=== PATIENT | female | born 1945 | race Caucasian/White ===

== ENCOUNTER 2018-01-25 13:00 | Inpatient (IN) | payer BC, MEDICARE ==
[2018-02-02] MEDS ORDERED: VANCOMYCIN HCL 1,000 MG in DEXTROSE 5 % IN WATER 250 ML IVPB ONE ×2 (06:00)
[2018-02-02] MEDS ORDERED: MECLIZINE 25 MG TABLET PO ONE (06:00)
[2018-02-02] MEDS ORDERED: FAMOTIDINE 20MG TABLET PO ONE (06:00)
[2018-02-02] MEDS ORDERED: METOCLOPRAMIDE 10 MG TABLET PO ONE (06:00)
[2018-02-02 08:40] LABS: ABO GROUP O; ANTIBODY SCREEN NEGATIVE (NEGATIVE); RH TYPE POSITIVE
[2018-02-02] MEDS ORDERED: ACETAMINOPHEN W/ CODEINE 300MG/60MG TABLET PO PRN ×2 (11:28)
[2018-02-02] MEDS ORDERED: DIPHENHYDRAMINE HCL 25 MG CAPSULE PO PRN (11:28)
[2018-02-02] MEDS ORDERED: BISACODYL 10 MG SUPP RC PRN (11:28)
[2018-02-02] MEDS ORDERED: ONDANSETRON HCL IV 4 MG/2 ML VIAL IVP PRN (11:28)
[2018-02-02] MEDS ORDERED: ACETAMINOPHEN 325 MG TAB PO PRN (11:28)
[2018-02-02] MEDS ORDERED: ZOLPIDEM TARTRATE 5 MG TABLET PO PRN (11:28)
[2018-02-02] MEDS ORDERED: HYDROCODONE/APAP 10/325 TABLET PO PRN ×2 (11:28)
[2018-02-02] MEDS ORDERED: AL HYDROX/MAG HYDROX 30ML UD PO PRN (11:28)
[2018-02-02] MEDS ORDERED: HYDROMORPHONE HCL 2 MG/ML VIAL IM PRN (11:28)
[2018-02-02] MEDS ORDERED: NALOXONE 0.4 MG/1 ML VIAL IVP PRN (11:28)
[2018-02-02] MEDS ORDERED: KETOROLAC 30 MG/ML VIAL IVP PRN ×2 (11:28)
[2018-02-02] MEDS ORDERED: MAGNESIUM HYDROXIDE 30 ML UDC PO PRN (11:28)
[2018-02-02] MEDS ORDERED: BUPIVACAINE 0.5% W/EPI MPF 30 ML VIAL IVP ONE (14:09)
[2018-02-02] MEDS ORDERED: TRANEXAMIC ACID 1,000 MG/10 ML ML IV ONE (14:09)
[2018-02-02] MEDS: POTASSIUM CHLORIDE/D5-0.9%NACL 20 MEQ/1,000 ML BAG IV SCH (15:36)
--- NOTE | 2018-02-02 16:25 | Rehab Evaluation ---
Patient Information - Patient Information Diagnosis: R hip OA Ordered Treatment: PT Evaluate and Treat Status: Initial Evaluation Surgery: Yes (R THR) Date of Surgery: 02/02/18 Past Medical/Surgical Hx: PAST MEDICAL/SURGICAL HISTORY Past Surgical History vag hyst 1970 corrective sx 1971 laparoscopy 1989 bilat cats c scopes PMH - Respiratory Hx Respiratory Disorders Yes Hx Pneumonia Yes PMH - Cardiovascular Hx Cardiovascular Disorders Yes Hx Hypertension Yes: on meds good control Hx Heart Murmur Yes Hx of Mitral Valve Prolapse Yes: mild no regurg Exercise Tolerance Good PMH - Neuro Hx Neurological Disorders No PMH - GI Hx Gastrointestinal Disorders Yes PMH - Hx Genitourinary Disorders Yes Hx Kidney Stones Yes: hx of PMH - Endocrine Hx Endocrine Disorders Yes Hx Thyroid Disease Yes: on meds hypo PMH - Musculoskeletal Hx Musculoskeletal Disorders Yes Hx Back Injury Yes: falls in the past PMH - Psych Hx Psychiatric Problems No PMH - Hematology/Oncology Hx Hematology/Oncology No Disorders Premorbid Status: Detail (The patient was independent with all mobility prior to surgery) Social History: Detail (The patient lives with spouse in a 2 story house with 5 -6 steps to get to the top floor and 2 steps at the enterance.) Precautions: [place], Fall, Other (WBAT on the R LE) - Time With Patient Total Time Spent With Patient (Min): 30 Treatment Procedures: Detail (Initial Evaluation, gait training) Subjective Information - Subjective Information Per Patient (The patient had no complaints of pain initial and mild pain when ambulating. The patient became nauseated and vomited x 1 after ambulating.) Objective Data - Mental Status Patient Orientation: Oriented x3 - Visual Perception Appears within normal limits for therapeutic activities - ROM Not within normal limits (The patient's R hip AROM is within Total hip precautions. All other LE AROM is WNL.) - Strength/Tone Not within normal limits (The patient's R LE strength was not tested s/p surgery , however patient's LE strength was functional ie: patient was able to lift LE in and out of bed.) - Bed Mobility Independent (The patient was independent with supine to and from sit and scooting up in bed following THR precautions.) - Transfers Independent (The patient was independent with sit to and from stand transfer and toilet transfer.) - Balance Balance Sitting: Good Balance Standing: Good - Sensation Intact - Gait Detail (The patient ambulated with a front wheeled walker WBAT on the R LE with CG of one for safety a distance of 40 feet x 1 .) Therapy Assessment - Therapy Assessment Detail (The patient was independent with bed mobility and transfers and ambulated with CG for safety only. The patient became flush with sit to stand and nauseated after ambulating. Feel the patient will progress well tomorrow with mobility.) Patient Education - Patient Education Teaching Topic: Precautions (The patient was able to identify 2 out of 3 total hip precautions without verbal cueing.) Response: Verbalize Understanding Teaching Method: Discussion, Handout Teaching Recipient: Patient Barriers To Learning: None Problem List - Problem List Physical Therapy Problem List: Detail (1) Decreased R LE strength as to be expected following surgery. 2) Non ambulatory on stairs) Goals - Goals Physical Therapy Goals: 1) The patient will ambulate on flights of stairs with supervision for safety only. 2) The patient will be independent with THR HEP. Prognosis - Prognosis Good Plan - Plan Physical Therapy Plan: PT for 1-2 PT sessions for gait training on stairs and instruction in HEP.
[2018-02-02] MEDS: VANCOMYCIN HCL 1,000 MG in DEXTROSE 5 % IN WATER 250 ML IVPB SCH ×2 (21:02)
[2018-02-02] MEDS: DOCUSATE SODIUM 100 MG CAPSULE PO SCH (22:04)
[2018-02-03] MEDS: POTASSIUM CHLORIDE/D5-0.9%NACL 20 MEQ/1,000 ML BAG IV SCH ×2 (01:30→06:27)
[2018-02-03] MEDS: TRAMADOL HCL 50 MG TABLET PO PRN ×2 (03:50→10:33)
[2018-02-03 06:46] LABS: HEMATOCRIT 32.7 % (35.0-47.0); HEMOGLOBIN 10.8 gm/dl (11.6-16.0)
[2018-02-03 07:05] LABS: BLOOD UREA NITROGEN 9 mg/dL (8-23); CREATININE 0.5 mg/dL (0.5-0.9); EST GLOMERULAR FILTRATION RATE > 60 mL/min; GLUCOSE,RANDOM 132 mg/dL (74-109)
[2018-02-03] MEDS: VANCOMYCIN HCL 1,000 MG in DEXTROSE 5 % IN WATER 250 ML IVPB SCH ×2 (08:18)
[2018-02-03] MEDS ORDERED: FERROUS SULFATE 325 MG TAB PO SCH (10:00)
[2018-02-03] MEDS ORDERED: RIVAROXABAN 10 MG TABLET PO SCH (10:00)
[2018-02-03] MEDS: DOCUSATE SODIUM 100 MG CAPSULE PO SCH (10:34)
--- NOTE | 2018-02-03 10:43 | Physical Therapy Tx Note ---
Physical Therapy Tx Note - Treatment Note Tolerated: Good Total Time Spent With Patient: 20 Physical Therapy Tx Note: Detail (The patient was in bed when PT arrived. The patient completed THR exercises including, gluteal sets, hamstring sets, quad sets, heel slides, hip abduction sidelying,ankle pumps. The patient ambulated independently with front wheeled walker WBAT on the R LE a distance of 120 feet x 1. The patient ambulated on stairs with use of one railing and cane 3 steps and 7 steps with supervision for safety only using proper technique.) Physical Therapy Problem List: Detail (1) Decreased R LE strength as to be expected following surgery. 2) Non ambulatory on stairs) Physical Therapy Goals: GOALS MET: 1) The patient will ambulate on flights of stairs with supervision for safety only. 2) The patient will be independent with THR HEP. Physical Therapy Plan: The patient has completed all inpatient goals. The patient is to receive Home PT.
--- NOTE | 2018-02-03 11:36 | Rehab Evaluation ---
Patient Information - Patient Information Diagnosis: R hip OA Ordered Treatment: OT Evaluate and Treat Status: Initial Evaluation Surgery: Yes (R THR) Date of Surgery: 02/02/18 Past Medical/Surgical Hx: PAST MEDICAL/SURGICAL HISTORY Past Surgical History vag hyst 1970 corrective sx 1971 laparoscopy 1989 bilat cats c scopes PMH - Respiratory Hx Respiratory Disorders Yes Hx Pneumonia Yes PMH - Cardiovascular Hx Cardiovascular Disorders Yes Hx Hypertension Yes: on meds good control Hx Heart Murmur Yes Hx of Mitral Valve Prolapse Yes: mild no regurg Exercise Tolerance Good PMH - Neuro Hx Neurological Disorders No PMH - GI Hx Gastrointestinal Disorders Yes PMH - Hx Genitourinary Disorders Yes Hx Kidney Stones Yes: hx of PMH - Endocrine Hx Endocrine Disorders Yes Hx Thyroid Disease Yes: on meds hypo PMH - Musculoskeletal Hx Musculoskeletal Disorders Yes Hx Back Injury Yes: falls in the past PMH - Psych Hx Psychiatric Problems No PMH - Hematology/Oncology Hx Hematology/Oncology No Disorders Premorbid Status: Detail (The patient was independent with all mobility and IADLs prior to surgery) Social History: Detail (The patient lives with spouse in a split level (4 story ) house with 5 -6 steps to get to the floor where her bedroom and bathroom are located. She has 2 steps at the entrance, no railings. She has a walk in shower with a shower seat, no grab bars and a riser for the toilet, no grab bars but the sink is right next to the toilet. Her spouse will be completing all IADLs as needed. She has a 2 wheeled walker, canes, crutches, college hire, shower seat and toilet riser.) Precautions: [place], Fall, Other (WBAT on the R LE, total hip precautions) - Time With Patient Total Time Spent With Patient (Min): 35 Treatment Procedures: Detail (OT eval low complexity) Subjective Information - Subjective Information Per Patient Objective Data - Pain Pain Present: Yes (2-06/13) - Mental Status Patient Orientation: Oriented x3 - Visual Perception Appears within normal limits for therapeutic activities - ROM Within normal limits ([place] UE AROM WNL) - Strength/Tone Within normal limits ([place] UE strength WNL) - Coordination Appears within normal limits for therapeutic activities - Transfers Independent (Ind with sit to stand from chair height.) - Balance Balance Sitting: Good Balance Standing: Good - Sensation Intact - Gait Detail (Pt ambulating in room with 2 wheeled walker Indly.) - ADL's/IADL's Detail (Pt educated and demonstrated learning of modified LE dressing techniques with use of college hire while maintaining total hip precautions. She was able to doff slipper socks and briefs and don underwear, pants and slip on shoes Indly with college hire. Pt educated re: shower and kitchen modifications and safety, she verbalized learning.) Therapy Assessment - Therapy Assessment Detail (Pt is safe and Ind with modified LE dressing technique using college hire while maintaining total hip precautions.) Problem List - Problem List Physical Therapy Problem List: Detail (1) Decreased R LE strength as to be expected following surgery. 2) Non ambulatory on stairs) Occupational Therapy Problem List: Detail (No current IP OT problems identified. ) Goals - Goals Physical Therapy Goals: GOALS MET: 1) The patient will ambulate on flights of stairs with supervision for safety only. 2) The patient will be independent with THR HEP. Occupational Therapy Goals: No current IP OT goals identified. Prognosis - Prognosis Good Plan - Plan Physical Therapy Plan: The patient has completed all inpatient goals. The patient is to receive Home PT. Occupational Therapy Plan: No further IP OT recommended. Thank you for this referral.
[2018-02-03] MEDS ORDERED: **ER** KETAMINE HCL 500MG/10ML VIAL IV ONE (11:44)
[2018-02-03] MEDS ORDERED: MIDAZOLAM HCL 2MG/2ML VIAL IV ONE (11:44)
[2018-02-03] MEDS ORDERED: PROPOFOL 10 MG/ML VIAL IV ONE (11:44)
--- NOTE | 2018-02-04 15:21 | Operative Note ---
DATE OF SURGERY: 02/02/2018 PREOPERATIVE DIAGNOSIS: End-stage arthrosis of the right hip. POSTOPERATIVE DIAGNOSIS: End-stage arthrosis of the right hip. OPERATION: Cementless right total hip arthroplasty using [employer]man [employer] Nephew components, a size 52 no-hole Reflection cup, a 35-degree offset 32 mm diameter liner, a size 12 high-offset Cheval stem with a +0 32 mm diameter cobalt chrome head. Staff Surgeon: Aquiles Morgan MD Anesthesia: Spinal. Preparation: Chloraprep. Individual Considerations: None. PROCEDURE: The patient was taken to the operating room and placed up on the operating room table. She had successful induction with spinal anesthetic. She was then placed on her side right side up and her right leg and hip were prepped and draped in the usual fashion. The patient had direct posterior approach to the hip. Sharp dissection carried down through skin and subcutaneous tissue. Small veins were coagulated with a Bovie. The tensor gluteal fascia was opened along the entire length of the incision. Deep retractors were placed. The short external rotators were identified, piriformis fossa, and removed exposing the posterior capsule. Posterior capsulectomy was performed. Hip was dislocated posteriorly. She had advanced arthrosis, flattening of the head with large marginal osteophytes. A femoral neck cut was then made about a fingerbreadth above the lesser trochanter using an oscillating saw and then a rim capsulectomy was performed. Starting with a 43 mm reamer to medialize to the medial wall. I reamed to the introitus which was a 51 for a 52 cup. I slightly under-reamed to 50 and after irrigation, I impacted a size 52 no-hole Reflection cup in 20 degrees of forward flexion and 40 degrees of adduction using the extraarticular alignment guide and bony landmarks. There was solid cementless fixation. After irrigation, I impacted a 35-degree offset liner with the offset posteriorly and slightly inferiorly. This gave an excellent stable acetabular construct and this was packed off. The proximal femur was delivered into the wound. Box cutting osteotome was used to remove the proximal metaphyseal bone. Mid stem reaming was done to a size 12. I started feeling cortex I would say at around 11. I then went ahead and broached a 12, dialed anteversion into about 20 degrees. She had a neutral angle. I was only able to dial into about 20 degrees of anteversion. I calcar reamed and with a high-offset trial and a +0 head, there was excellent stability. I removed the broach as a trial thoroughly, irrigated out, and then impacted a high-offset Cheval size 12 stem with solid cementless fixation and solid calcar contact. After thorough irrigation and drying the Andreas taper, I impacted a +0 32 cobalt chrome head on the Andreas taper, reduced the hip, and again solid stability, full anterior stability and extensor and external rotation full, posterior stability with flexion up to the knee to chest and internally rotating 90 degrees it was stable. After irrigation, the sciatic notch nerve was inspected and found to be completely intact. Hemostasis was obtained with a Bovie. The patient did receive 1 g of tranexamic acid preoperatively. I mixed 1 g of tranexamic acid with 30 mL of saline and placed it deep in the fascia. The fascia was then closed with running #2 quill, subcu was closed in layers with running 0 quill, skin was closed with jacqui. I infiltrated the skin with 30 mL of 0.5% Marcaine with epinephrine. A sterile bulky compressive Naldo dressing was applied. The patient tolerated the procedure well. Needle and sponge counts were correct. Estimated blood loss was about 200 mL and she was taken back to recovery in good condition. There were no complications. BRIAN
--- NOTE | 2018-02-05 10:00 | Discharge Summary ---
DATE OF ADMISSION: 02/02/2018 DATE OF DISCHARGE: 02/03/2018 HISTORY: The patient is a delightful 72-year-old female who presents with endstage arthrosis of her right hip. She was admitted after right total hip arthroplasty. Postoperatively, she did spectacularly. Her hospital course is unremarkable. Her discharge hemoglobin is 10.8. She does not require transfusion. PLAN: To discharge her to home in the care of her family. Home PT, visiting nurse may arrange. She will be given Ultram with Tylenol for pain and Xarelto, followed by aspirin for DVT prophylaxis. She with follow up in my office in 4 weeks. FINAL DIAGNOSES: 1. Primary diagnosis is endstage arthrosis of the right hip. 2. Secondary diagnosis is acute operative blood loss anemia. OPERATIONS AND PROCEDURES: Cementless right total hip arthroplasty. BRIAN
== END 2018-02-03 11:45 | disposition home health service (06) | DRG 470 ==
LOC: MEDSURG 02-02 07:26
PROVIDERS: ADMIT Orthopaedic Surgery; ATTEND Orthopaedic Surgery
PROC: 0SR906A Replacement of Right Hip Joint with Oxidized Zirconium on Polyethylene Synthetic Substitute, Uncemented, Open Approach (ICD-10-PCS; principal; 2018-02-02 09:30)
DX: M16.11 Unilateral primary osteoarthritis, right hip (principal); I10 Essential (primary) hypertension; E03.9 Hypothyroidism, unspecified
CPT/HCPCS: 80048; 85014; 85018; 86850; 86900; 86901; 97530; C1776; J2405; J3480; J7060